=== PATIENT | male | born 1945 | race Caucasian/White ===

== ENCOUNTER → 2018-08-17 09:25 | Day surgery (SDC) | payer MEDICARE ==
--- NOTE | 2018-08-08 16:26 | HP ---
CC: Dr. Lester Oliver * PREOPERATIVE HISTORY AND PHYSICAL: DATE OF ADMISSION: 08/17/18 This patient is scheduled for same-day surgery admission by Dr. Watson on , 08/17/18. DATE OF PREOPERATIVE HISTORY AND PHYSICAL EXAMINATION: 08/08/18 ATTENDING SURGEON: Dr. Yan Watson * (dictated by Keesha Stone NP). CHIEF COMPLAINT: Umbilical hernia and left groin hernia. HISTORY OF PRESENT ILLNESS: The patient is a 73-year-old male recently evaluated by Dr. Watson for an umbilical hernia and a left inguinal hernia. The patient first saw Dr. Watson about 2 years ago and at that time, the umbilical hernia was not uncomfortable and he wanted to hold off surgery. Now, the umbilical hernia has enlarged and is starting to be uncomfortable. He also reported intermittent pain in the left groin. Dr. Watson examined the patient and notes a supraumbilical hernia, which feels like incarcerated omentum and is not reducible; there is also an obvious left inguinal hernia, which is soft, reducible, and medium in size. The patient denies any signs or symptoms to suggest incarceration or strangulation of bowel. There is no change in urinary function. Dr. Watson discussed the findings with the patient and has recommended open umbilical hernia repair with mesh and open left inguinal hernia repair with mesh at the same setting. Dr. Watson discussed the nature of the surgical procedures, the use of mesh, the relevant risks and benefits and today I reviewed the typical postoperative care and recovery. The patient has had a chance to ask questions and stated that he understands the information and is satisfied with the answers given to his questions. He will sign surgical consent on the day of surgery. PAST MEDICAL HISTORY: Significant for hypertension; obesity; asymptomatic premature ventricular contractions; GERD; and BPH. PAST SURGICAL HISTORY: Parathyroidectomy for hyperparathyroidism in [place]; laparoscopic cholecystectomy by Dr. Pratt. MEDICATIONS: 1. Amlodipine 2.5 mg p.o. daily in the morning. 2. Sertraline 50 mg 1-1/2 tablets p.o. daily in the morning. 3. Terbinafine 250 mg p.o. daily in the morning. 4. Ginseng supplement p.o. daily in the morning. 5. Omeprazole 20 mg p.o. daily in the morning. 6. He also receives vitamin B12 injection monthly at the primary care office. ALLERGIES: LISINOPRIL caused cough. 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 He has 1 daughter. He is a former cigarette smoker. He denies the use of alcohol or other substances. FAMILY HISTORY: Father due to lung cancer at age 82. Mother due to heart disease at age 93. No known anesthesia complications, bleeding tendencies, or clotting disorders in the family. REVIEW OF SYSTEMS: Constitutional: No fevers, chills, excessive fatigue, or weight loss. Endocrine: No diabetes or thyroid disease. Hematologic: No easy bruising or bleeding. No history of blood transfusions. Respiratory: No dyspnea on exertion. No chronic cough. Cardiovascular: No anginal chest pain or palpitations. He has a history of premature ventricular contractions since 1996. He underwent workup by Dr. Mendez and by his report, cardiac catheterization and stress test were within normal limits; he has never had myocardial infarction. Gastrointestinal: No nausea, vomiting, diarrhea, GI bleeding, or constipation. No change in bowel habits. Genitourinary: No dysuria. Musculoskeletal: No joint or back pain today. Integumentary: No chronic rashes or skin changes. Neurologic: No headache or blurred vision. No areas of focal weakness or numbness. General: No previous anesthesia complications. No history of deep vein thrombosis or pulmonary embolism. PHYSICAL EXAMINATION GENERAL SURVEY: The patient is a 73-year-old male, well developed, well nourished, in no acute distress. VITAL SIGNS: Height 71 inches, weight 226 pounds, body mass index 31.5. Blood pressure 138/82, pulse 54 and regular, respiratory rate 16, temperature 97 tympanic. HEENT: Benign. NECK: Supple. No cervical lymphadenopathy. LUNGS: Breath sounds bilaterally clear and equal. HEART: Occasional premature beat. S1, S2 is normal. No heart murmur appreciated. No edema of the lower extremities bilaterally. ABDOMEN: Obvious supraumbilical hernia, not particularly tender, not reducible. No surrounding erythema. The abdomen is obese, soft, nontender throughout. No obvious organomegaly, but exam is limited by body habitus. Inguinal exam done by Dr. Watson revealed an obvious left inguinal hernia, medium in size soft and reducible and right inguinal region is without hernia. The testes are normally descended. BACK: No CVA tenderness. RECTAL: Deferred. EXTREMITIES: Warm without edema or skin ulceration. NEUROLOGIC: Alert and oriented x3. Steady gait. SKIN: Warm, dry, intact. IMPRESSION: 1. Umbilical hernia. 2. Left inguinal hernia. PLAN: Same-day surgery admission to Dr. Watson's service on , 08/17/18 , for open repair of umbilical hernia with mesh and open repair of left inguinal hernia with mesh at the same setting. SHERITA STONE, HUMANITIES COORDINATOR [id number]/[facility] #: [id number] [facility]
[~2018-08-17 09:25] MED LIST: Buffered Lidocaine 0.9% SYRIN* 5 ML/SYR SYRINGE INTRADERM ONE; Bupivacaine 0.5% W/EPI SDV* 30 ML VIAL ONE; Dexamethasone IV* 4 MG/ML 1 ML (4 MG) ONE; EPHEDrine (Pressors)* 50 MG/ML VIAL ONE; Famotidine IV* 10 MG/ML 2 ML (20 mg) IV ONE; Famotidine IV* 10 MG/ML 2 ML (20 mg) ONE; Glycopyrrolate IV* 0.2 MG/ML 1 ML VIAL ONE; KETAMINE HCL* 50 MG/ML 10 ML VIAL ONE; Ketorolac INJ* 30 MG/ML 1 ML VIAL ONE; Lactated Ringers 1000 ML Bag* 1,000 ML IV SCH; Lidocaine 1% INJ* 10 MG/ML 30 ML SDV ONE; Lidocaine 2% PF * 5 ML VIAL ONE; Midazolam* 1 MG/ML 5 ML VIAL (5 MG) ONE; Naloxone* 0.4 MG/ML 1 ML VIAL IV PRN; Ondansetron INJ* 2 MG/ML VIAL IV PRN; Ondansetron INJ* 2 MG/ML VIAL ONE; Propofol* 10 MG/ML 20 ML BTL ONE; ceFAZolin 2 GM PREMIX in ORs 0 GM/0 ML BAG IVPB ONE; ceFAZolin 2 GM PREMIX in ORs 2 GM/50 ML BAG IVPB ONE; fentaNYL* 50 MCG/ML 2 ML VIAL (100 MCG VIAL) ONE; oxyCODONE/Acetamin 5/325 MG* TAB ONE
[2018-08-17] MEDS: fentaNYL* 50 MCG/ML 2 ML VIAL (100 MCG VIAL) IV PRN ×2 (13:38→13:55)
[2018-08-17] MEDS: oxyCODONE/Acetamin 5/325 MG* TAB PO PRN ×2 (13:39→14:30)
[2018-08-17 15:32] VITALS: BP 138/94
--- NOTE | 2018-08-17 22:26 | OP ---
CC: Dr. Oliver * DATE OF OPERATION: 08/17/18 - [facility] DATE OF : 49 SURGEON: Yan Watson MD PILOT SUPERVISOR: Keesha Huerta NP ANESTHESIOLOGIST: Dr. Fritz. ANESTHESIA: General anesthetic, local infiltration. PRE-OP DIAGNOSIS: Umbilical and left inguinal hernias. POST-OP DIAGNOSIS: Umbilical and left inguinal hernias. OPERATIVE PROCEDURE: Open repair of umbilical and left inguinal hernias with mesh. DESCRIPTION OF PROCEDURE: The patient was supine on the operative table. After adequate general anesthetic, compression stockings, Kim Hugger warmer, and intravenous antibiotics, the abdomen was clipped and prepped with antiseptic , draped in a sterile fashion. Local infiltrative anesthesia was administered. Umbilical incision was created in the supraumbilical fold and this was approximately 4 cm in length. It was carried down to hernia, which was about 5 cm across. This was undermined by a 2 cm defect. Everything was dissected free and the hernia was reduced and an 8 cm underlay patch was chosen. This was sewn up underneath in 4 quadrants and then at the end for a total of 8 circumferential sutures and then the fascia was closed over top with 0 Vicryl. The umbilical skin was tacked back down. Adipose closed with 3-0 Vicryl, skin with 5-0 Vicryl followed by Steri-Strips. Attention was turned to the left inguinal region. Approximately 2.5- inch incision was created and dissection carried down through the external oblique, which was opened in the direction of its fibers. Cord structures were encircled with Dilia drain, tented upward. There was a very large direct space hernia encompassing the entire inguinal floor. This was eventually dissected free and the preperitoneal plane was developed. A Prolene hernia system PHSE patch was put into place and was sutured underneath that Stiven's ligament under the transverse abdominis and laterally as well. The external leaf was then sutured at the tubercle, at the inguinal ligament, at the transverse abdominis. Tails were split, brought around the cord structures and tacked down laterally. External oblique was closed over top with 2-0 Vicryl, adipose with 3-0 Vicryl, and skin with 4-0 Prolene followed by sterile dressing. He tolerated the procedure well, was awakened and brought to Recovery in good condition. There were no complications. No drains. No pathologic specimens. Sponge and instrument counts were correct. Estimated blood loss was less than 30 mL. [id number]/[facility] #: [id number] [facility] NETWORKCassie
== END | disposition home or self-care (01) ==
LOC: OR 09:25
PROVIDERS: ATTEND Surgery
DX: K42.9 Umbilical hernia without obstruction or gangrene (principal); K40.90 Unilateral inguinal hernia, without obstruction or gangrene, not specified as recurrent; I49.3 Ventricular premature depolarization; I10 Essential (primary) hypertension; J45.909 Unspecified asthma, uncomplicated; K21.9 Gastro-esophageal reflux disease without esophagitis; F41.8 Other specified anxiety disorders
CPT/HCPCS: A9270-GY; C1781; J0690; J1100; J1885; J2250; J2405; J2704; J3010

== ENCOUNTER 2021-08-26 15:54 | Inpatient (IN) ==
[2021-08-26 16:51] LABS: ABS Eosinophils 0.1 10^3/ul (0-0.6); ABS Lymphocytes 1.3 10^3/ul (1.0-4.8); ABS Monocytes 0.6 10^3/ul (0-0.8); ABS Neutrophils 5.4 10^3/ul (1.5-7.7); Hematocrit 44 % (42-52); Hemoglobin 15.1 g/dL (14.0-18.0); Lymphocyte % 17.9 %; Mean Corpuscular HGB Conc 34 g/dL (31-36); Mean Corpuscular Hemoglobin 32 pg (27-31); Mean Corpuscular Volume 94 fL (80-94); Mean Platelet Volume 8.5 fL (7.4-10.4); Platelet Count 192 10^3/uL (150-450); Red Blood Count 4.69 10^6 /uL (4.18-5.48); Red Cell Distribution Width 13 % (10-15); Urine Appearance Cloudy; Urine Bilirubin Negative (Negative); Urine Blood 1+ (Negative); Urine Color Yellow; Urine Glucose Negative (Negative); Urine Ketones Negative (Negative); Urine Nitrite Negative (Negative); Urine Protein Negative (Negative); Urine Specific Gravity 1.025 (1.002-1.030); Urine Urobilinogen Positive (Negative); White Blood Count 7.5 10^3/uL (3.5-10.8)
[2021-08-26 16:57] LABS: Urine Bacteria 1+ (Absent); Urine Red Blood Cell 1+(3-5/hpf) (Absent); Urine Squamous Epithelial Cell Present (Absent); Urine White Blood Cell 1+(6-10/hpf) (Absent)
[2021-08-26 17:09] LABS: Urine Benzodiazepine Screen None Detected (None Detect); Urine Cannabinoids Screen Presumptive Positive (None Detect); Urine Opiates Screen None Detected (None Detect)
[2021-08-26 17:10] LABS: ALT 19 U/L (7-52); AST 21 U/L (13-39); Albumin 4.4 g/dL (3.2-5.2); Albumin/Globulin Ratio 1.7 (1-3); Alkaline Phosphatase 43 U/L (35-149); Anion Gap 7 mmol/L (2-11); Blood Urea Nitrogen 22 mg/dL (6-24); CO2 Carbon Dioxide 26 mmol/L (22-32); Calcium 9.5 mg/dL (8.6-10.3); Chloride 103 mmol/L (101-111); Globulin 2.6 g/dL (2-4); Glucose 92 mg/dL (70-100); Potassium 3.8 mmol/L (3.5-5.0); Sodium 136 mmol/L (135-145); eGFR CKD-EPI 77.1 (>60)
[2021-08-26 17:21] LABS: Acetaminophen < 15 mcg/mL; Alcohol, S < 13 mg/dL (<13); Salicylate < 2.50 mg/dL (<30)
[2021-08-26 17:34] LABS: TSH Ultra Thyroid Stim Horm 0.97 mcIU/mL (0.34-5.60)
[2021-08-26] MEDS ORDERED: Al Hydrox/Mg Hydrox/Simet LIQ 30 ML UDC PO PRN (21:23)
[2021-08-27] MEDS: Vitamin THERAPEUTIC TAB PO SCH (08:58)
[2021-08-28 08:27] LABS: HDL Cholesterol 48.8 mg/dL
[2021-08-28] MEDS: Vitamin THERAPEUTIC TAB PO SCH (09:36)
[2021-08-29] MEDS: Vitamin THERAPEUTIC TAB PO SCH (08:58)
[2021-08-30] MEDS: Vitamin THERAPEUTIC TAB PO SCH (08:41)
[2021-08-31] MEDS: Vitamin THERAPEUTIC TAB PO SCH (09:06)
[2021-09-01] MEDS: Vitamin THERAPEUTIC TAB PO SCH (08:57)
[2021-09-02] MEDS: Vitamin THERAPEUTIC TAB PO SCH (08:15)
[2021-09-03] MEDS: Vitamin THERAPEUTIC TAB PO SCH (08:35)
[2021-09-04] MEDS: Vitamin THERAPEUTIC TAB PO SCH (08:25)
[2021-09-05] MEDS: Vitamin THERAPEUTIC TAB PO SCH (08:44)
[2021-09-06] MEDS: Vitamin THERAPEUTIC TAB PO SCH (08:40)
[2021-09-07 08:11] VITALS: BP 143/85
[2021-09-07] MEDS: Vitamin THERAPEUTIC TAB PO SCH (08:23)
== END 2021-09-07 14:10 | disposition home or self-care (01) | DRG 885 ==
LOC: ED 15:54 → BSU 21:29
PROVIDERS: ADMIT Psychiatry & Neurology Psychiatry; ATTEND Student in an Organized Health Care Education/Training Program